=== PATIENT | female | born 1955 | race Caucasian/White ===

== ENCOUNTER → 2016-07-27 07:37 | Outpatient (CLI) | payer BC | END | disposition home or self-care (01) | LOC: D.CT 07:37 | DX: R93.8 Abnormal findings on diagnostic imaging of other specified body structures (principal) ==

== ENCOUNTER 2017-06-06 21:37 | Emergency (ER) | payer BC ==
[2017-06-06 22:35] LABS: BASOPHILS 0 % (0-2); EOSINOPHILS 1.2 % (0-7); HEMOGLOBIN 12.6 g/dL (12-16); IMMATURE GRANULOCYTES 0.2 % (0-5); LYMPHOCYTES 26.5 % (15-50); MCH 29.9 pg (26.0-34.0); MCHC 32.3 g/dL (31.0-37.0); MCV 92.4 fL (80.0-100.0); MEAN PLATELET VOLUME 9.5 fL (7.4-10.4); MONOCYTES 12.4 % (2-11); NEUTROPHILS 59.7 % (40-80); PLATELET COUNT 242 10x3/uL (130-400); RBC 4.22 10x6/uL (4.00-5.40); RDW 13.5 % (11.5-14.5); WBC 4.1 10x3/uL (4.8-10.8)
[2017-06-06 23:01] LABS: ALBUMIN 3.3 g/dL (3.4-5.0); ALKALINE PHOSPHATASE 43 U/L (46-116); ALT (SGPT) 32 U/L (10-68); CALC OSMOLALITY 277 mosm/kg (275-300); CALCIUM 8.5 mg/dL (8.5-10.1); CARBON DIOXIDE 32.7 mmol/L (21.0-32.0); CHLORIDE - SERUM 99 mmol/L (98-107); CREATININE - SERUM 0.8 mg/dL (0.6-1.3); GLUCOSE 150 mg/dL (74-106); POTASSIUM - SERUM 4.3 mmol/L (3.5-5.1); PROTEIN - SERUM 7.1 g/dL (6.4-8.2); SODIUM 137 mmol/L (136-145); UREA NITROGEN 14 mg/dL (7-18); eGFR NON AFRICAN AMERICAN 77 mL/min (90-120)
== END 2017-06-06 23:46 | disposition home or self-care (01) ==
LOC: D.ER 21:37
PROVIDERS: Family Medicine
DX: B34.9 Viral infection, unspecified (principal); I10 Essential (primary) hypertension

== ENCOUNTER → 2018-04-07 16:47 | Outpatient (CLI) | payer BC | END | disposition home or self-care (01) | LOC: D.MAMMO 03-24 16:00 | DX: Z12.31 Encounter for screening mammogram for malignant neoplasm of breast (principal) ==

== ENCOUNTER 2020-10-25 16:43 | Observation (INO) | payer BC ==
[~2020-10-25] VITALS: Ht 170.2 cm; Wt 104.5 kg
--- NOTE | ~2020-10-25 | EC ---
PATIENT:PATRICE HELLER DATE OF SERVICE: 10/25/20 SEX: F MEDICAL RECORD: [id number] DATE OF : [birth year] LOCATION:D.M2 D.213 AGE OF PATIENT: 65 ADMISSION DATE: 10/25/20 REFERRING PHYSICIAN: INTERPRETING PHYSICIAN: INDIO VANEGAS MD ECHOCARDIOGRAM REPORT ECHO CHARGES 4 ECHO COMPLETE Date: 10/27/20 CLINICAL DIAGNOSIS: CHF ECHOCARDIOGRAPHIC MEASUREMENTS (adult normal given) AC root (d.<3.7cm) 2.8 cm LV Septum d (<1.2 cm> 1.4 cm Valve Excursion 1.7 cm LV Septum (systole) 1.8 cm Left Atria (s.<4.0cm> 3.4 cm LVPW d(<1.2cm) 1.0 cm RV (d.<2.3cm) 2.7 cm LVPW (sytole) 1.5 cm LV diastole(<5.6CM) 5.5 cm MV E-F(>70mm/sec) cm LV systole 4.3 cm LVOT Diameter 1.7 cm MV exc.(>10mm) 1.0 cm Est.ejection fraction (50-75%) % DOPPLER: LVIT cm/sec A 95 cm/sec E 60 cm/sec LA cm/sec RVSP 26 mmHg LVOT 92 cm/sec AOP1/2T m/s Asc. Ao 134 cm/sec RVOT 63 cm/sec RA cm/sec PA 83 cm/sec AV Gradient Peak 7.1 mmHg AV Mean 4.4 mmHg AV Area 1.7 cm MV Gradient Peak 5.0 mmHg MV Mean 1.9 mmHg MV Area cm COMMENTS: Agricultural Extension Educator: [facility] Senior Marketing Associate: 3 Dr. Medina TAPE# Pericardial Effusion N DATE OF SERVICE: Adequate 2D, color flow imaging, spectral Doppler, and M-Mode. FINDINGS: No LVH. LV internal dimensions normal. Wall motion normal. EF is greater than or equal to 55%. Aortic valve is tricuspid. No evidence of stenosis by Doppler interrogation. Left atrium is normal at 3.4 cm. Mitral valve shows no prolapse. Trace MR. Right-sided chambers are grossly normal. Trace TR. ECHOCARDIOGRAM REPORT [id number] PATRICE HELLER TRANSINT:[id number] Voice Confirmation ID: [id number] DOCUMENT ID: [id number] INDIO VANEGAS MD CC: [id number] DICTATION DATE: 10/28/20 1549 DOUBLE END TENONER OPERATOR: 10/28/202036 DIS IN 10/27/20 [facility] [address] [id number]
--- NOTE | ~2020-10-25 | CN ---
PATIENT NAME:PATRICE HELLER MEDICAL RECORD: [id number] : 57 LOCATION:D. D.2132 ADMIT DATE: 10/25/20 ACCOUNT: [id number] CONSULTING PHYSICIAN: LUCY RAJAN MD REFERRING PHYSICIAN: ARAVIND PARSONS MD DATE OF CONSULTATION: 10/26/2020 HISTORY OF PRESENT ILLNESS: The patient is a 65-year-old female with history of hypertension, hyperlipidemia, anxiety, who presented with complaints of nausea and vomiting symptoms. The patient was noted to have abnormal troponin. Asked to evaluate from a cardiovascular standpoint. PAST MEDICAL HISTORY: Significant for; 1. Abnormal troponin. 2. Hypertension. 3. Hyperlipidemia. 4. Shortness of breath. 5. Nausea and vomiting symptomatology. PHYSICAL EXAMINATION: GENERAL: Pleasant, mildly obese, middle-aged white female, in no apparent distress. VITAL SIGNS: Blood pressure 108/60, pulse 60s (regular). HEENT: Sclerae are clear; conjunctivae pink. NECK: Supple; no appreciated JVD. HEART: She has got a regular rhythm and rate without appreciated murmurs, gallops, or rubs. LUNGS: Clear bilaterally. ABDOMEN: Obese. Bowel sounds positive. EXTREMITIES: Negative for edema. NEUROLOGIC: Nonfocal. DIAGNOSTIC DATA: EKG, normal sinus rhythm at 74 beats per minute, no acute ST-T wave changes. LABORATORY DATA: Hemoglobin and hematocrit 12.8 and 39.8, platelet count is 258. Sodium 141, potassium 4.1, BUN 10, creatinine 0.7, troponin 0.26. BNP is 3485 (elevated), LDL is 54, HDL is 62. Troponin 0.55 (elevated). MEDICATIONS: 1. Trazodone 200 mg daily. 2. Requip 1 mg daily. 3. Protonix 40 mg daily. 4. Outpatient amlodipine daily. 5. Gemfibrozil daily. 6. Hydrochlorothiazide daily. 7. Rosuvastatin daily (unclear doses). ASSESSMENT: 1. Congestive heart failure -- decompensated. 2. Abnormal troponin secondary to congestive heart failure. 3. Hypertension. 4. Shortness of breath. 5. Nausea and vomiting, has gastrointestinal symptomatology. 6. Hyperlipidemia. CONSULT REPORT [id number] PATRICE HELLER 7. Mild obesity. PLAN: Continue current medical management at this time. I recommend decreasing IV fluid to 50 cc an hour. I will also schedule the patient's echocardiogram to assess LV function and valvular status. Further recommendation as clinically indicated. Thank you for allowing me to participate in the care of this patient. TRANSINT:[id number] Voice Confirmation ID: [id number] DOCUMENT ID: [id number] LUCY RAJAN MD CC: [id number] DICTATION DATE: 10/26/201103 ASSISTANT PRESS OPERATOR: 10/26/20 1649 ADM IN [facility] [address] [place] [address]
[2020-10-25 17:16] LABS: BASOPHILS 0.4 % (0-2); EOSINOPHILS 0.3 % (0-7); HEMATOCRIT 41.9 % (36.0-48.0); HEMOGLOBIN 13.8 g/dL (12-16); IMMATURE GRANULOCYTES 0.1 % (0-5); LYMPHOCYTE ABS# 1.81 10x3/uL (1.18-3.74); MCH 29.5 pg (26.0-34.0); MCHC 32.9 g/dL (31.0-37.0); MCV 89.5 fL (80.0-100.0); MEAN PLATELET VOLUME 9.8 fL (7.4-10.4); MONOCYTES 6.4 % (2-11); NEUTROPHILS 74.8 % (40-80); PLATELET COUNT 289 10x3/uL (130-400); RBC 4.68 10x6/uL (4.00-5.40); RDW 13.8 % (11.5-14.5)
[2020-10-25 17:33] LABS: CALC OSMOLALITY 276 mosm/kg (275-300); CALCIUM 9.2 mg/dL (8.5-10.1); CHLORIDE - SERUM 100 mmol/L (98-107); CREATININE - SERUM 0.7 mg/dL (0.6-1.3); GLUCOSE 136 mg/dL (74-106); POTASSIUM - SERUM 3.6 mmol/L (3.5-5.1); SODIUM 138 mmol/L (136-145); UREA NITROGEN 11 mg/dL (7-18); eGFR NON AFRICAN AMERICAN 89 mL/min (90-120)
[2020-10-25 17:54] LABS: ALBUMIN 4.2 g/dL (3.4-5.0); ALKALINE PHOSPHATASE 59 U/L (30-120); ALT (SGPT) 37 U/L (10-68); AMYLASE - SERUM 28 U/L (25-115); BILIRUBIN - TOTAL 1.83 mg/dL (0.2-1.3); LIPASE 52 U/L (73-393); PROTEIN - SERUM 7.5 g/dL (6.4-8.2)
[2020-10-25 17:59] LABS: TROPONIN-I 0.613 ng/mL (0.000-0.060)
[2020-10-25 18:19] LABS: BILIRUBIN NEGATIVE (NEGATIVE); KETONE SMALL mg/dL (NEGATIVE); NITRITE NEGATIVE (NEGATIVE); UROBILINOGEN NORMAL mg/dL (< 2)
[2020-10-25 18:24] LABS: BACTERIA FEW HPF (NONE SEEN); SQUAMOUS EPITHELIAL 0-5 HPF (0-4); WHITE CELLS - URINE NONE SEEN HPF (0-4)
[2020-10-25 19:25] VITALS: BP 142/92
[2020-10-25 20:25] VITALS: BP 118/80
[2020-10-25 21:48] VITALS: Ht 170.2 cm; Wt 104.5 kg
[2020-10-25] MEDS ORDERED: TRAZODONE HCL100 MG PO (22:27)
[2020-10-25] MEDS ORDERED: CRESTOR5 MG PO (22:33)
[2020-10-25] MEDS ORDERED: ROPINIROLE HCL1 MG PO (22:33)
[2020-10-25] MEDS ORDERED: XANAX0.5 MG PO (22:34)
[2020-10-26 05:04] VITALS: BP 136/77
[2020-10-26 08:27] VITALS: BP 108/63
[2020-10-26 08:27] LABS: BASOPHILS 0.8 % (0-2); HEMATOCRIT 39.8 % (36.0-48.0); HEMOGLOBIN 12.8 g/dL (12-16); LYMPHOCYTE ABS# 1.27 10x3/uL (1.18-3.74); LYMPHOCYTES 20.4 % (15-50); MCH 29.4 pg (26.0-34.0); MCHC 32.2 g/dL (31.0-37.0); MCV 91.3 fL (80.0-100.0); MEAN PLATELET VOLUME 9.9 fL (7.4-10.4); MONOCYTES 8.8 % (2-11); NEUTROPHIL ABS# 4.31 10x3/uL (1.56-6.13); PLATELET COUNT 258 10x3/uL (130-400); RBC 4.36 10x6/uL (4.00-5.40); RDW 13.8 % (11.5-14.5)
[2020-10-26 08:28] LABS: WBC 6.2 10x3/uL (4.8-10.8)
[2020-10-26 08:42] LABS: APTT 28.4 SECONDS (22.8-39.4); INR 1.14 (0.85-1.17); PROTIME 13.5 SECONDS (11.6-15.0)
[2020-10-26 08:59] LABS: ALBUMIN 3.7 g/dL (3.4-5.0); ALKALINE PHOSPHATASE 56 U/L (30-120); ALT (SGPT) 35 U/L (10-68); BILIRUBIN - TOTAL 1.62 mg/dL (0.2-1.3); CALC OSMOLALITY 280 mosm/kg (275-300); CALCIUM 8.5 mg/dL (8.5-10.1); CARBON DIOXIDE 28.6 mmol/L (21.0-32.0); CHLORIDE - SERUM 105 mmol/L (98-107); CHOL - HDL RATIO 2.4 ratio (2.3-4.1); CHOLESTEROL, TOTAL 147 mg/dL (0-200); CREATININE - SERUM 0.7 mg/dL (0.6-1.3); GLUCOSE 124 mg/dL (74-106); HDL CHOLESTEROL 62 mg/dL (32-96); LDL CHOLESTEROL 54 mg/dL (0-100); LDL-HDL RATIO 0.9 ratio (1.5-3.5); MAGNESIUM - SERUM 2.5 mg/dL (1.8-2.4); PHOSPHOROUS 4.4 mg/dL (2.5-4.9); POTASSIUM - SERUM 4.1 mmol/L (3.5-5.1); PRO BNP 3485 pg/mL (0-125); PROTEIN - SERUM 6.4 g/dL (6.4-8.2); SODIUM 141 mmol/L (136-145); TRIGLYCERIDE 157 mg/dL (30-200); UREA NITROGEN 10 mg/dL (7-18); eGFR NON AFRICAN AMERICAN 89 mL/min (90-120)
[2020-10-26 09:02] LABS: CKMB 3.9 U/L (0.0-3.6); CREATINE KINASE 142 UL (21-215)
[2020-10-26 09:22] LABS: TROPONIN-I 0.262 ng/mL (0.000-0.060)
[2020-10-26 11:38] LABS: CKMB 3.7 U/L (0.0-3.6); CREATINE KINASE 140 UL (21-215)
[2020-10-26 11:40] LABS: TROPONIN-I 0.242 ng/mL (0.000-0.060)
[2020-10-26] MEDS ORDERED: ULTRAM50 MG PO (11:47)
[2020-10-26] MEDS ORDERED: VOLTAREN75 MG PO (11:49)
[2020-10-26 12:10] VITALS: BP 132/82
[2020-10-26] MEDS ORDERED: CELEBREX200 MG PO (12:35)
[2020-10-26] MEDS ORDERED: CELEXA40 MG PO (12:36)
[2020-10-26] MEDS ORDERED: NORVASC5 MG PO (12:37)
[2020-10-26] MEDS ORDERED: HYDROCHLOROTHIA25 MG PO (12:39)
[2020-10-26] MEDS ORDERED: METOPROLOL TART25 MG PO (12:39)
--- NOTE | 2020-10-26 12:43 | NUR ---
DAUGHTER BROUGHT MEDICATIONS AND MEDICATION RECONCILIATION WAS COMPLETED.
[2020-10-26 20:00] VITALS: BP 102/75
--- NOTE | 2020-10-26 20:00 | NUR ---
INITIAL ROUNDS AND ASSESSMENT COMPLETED. PT RESTING IN BED. CALL LIGHT IN REACH. SEE ASSESSMENT.
[2020-10-27 05:58] VITALS: BP 122/75
[2020-10-27 08:12] LABS: BASOPHILS 0.6 % (0-2); EOSINOPHILS 1.7 % (0-7); HEMATOCRIT 41.2 % (36.0-48.0); HEMOGLOBIN 13.2 g/dL (12-16); IMMATURE GRANULOCYTES 0.2 % (0-5); LYMPHOCYTE ABS# 1.43 10x3/uL (1.18-3.74); LYMPHOCYTES 27.3 % (15-50); MCH 29.4 pg (26.0-34.0); MCV 91.8 fL (80.0-100.0); MEAN PLATELET VOLUME 10.1 fL (7.4-10.4); MONOCYTES 6.5 % (2-11); NEUTROPHIL ABS# 3.34 10x3/uL (1.56-6.13); NEUTROPHILS 63.7 % (40-80); PLATELET COUNT 270 10x3/uL (130-400); RBC 4.49 10x6/uL (4.00-5.40); RDW 13.7 % (11.5-14.5); WBC 5.2 10x3/uL (4.8-10.8)
[2020-10-27 08:41] LABS: CALC OSMOLALITY 281 mosm/kg (275-300); CALCIUM 9.1 mg/dL (8.5-10.1); CARBON DIOXIDE 31.5 mmol/L (21.0-32.0); CHLORIDE - SERUM 103 mmol/L (98-107); CREATININE - SERUM 0.8 mg/dL (0.6-1.3); GLUCOSE 119 mg/dL (74-106); MAGNESIUM - SERUM 2.7 mg/dL (1.8-2.4); PHOSPHOROUS 4.1 mg/dL (2.5-4.9); POTASSIUM - SERUM 4.2 mmol/L (3.5-5.1); SODIUM 142 mmol/L (136-145); UREA NITROGEN 8 mg/dL (7-18); eGFR NON AFRICAN AMERICAN 76 mL/min (90-120)
--- NOTE | 2020-10-27 09:34 | NUR ---
AM MEDS GIVEN AT THIS TIME. PT SITTING UP IN BED WATCHING TV, RR EVEN NON LABORED ON ROOM AIR. PT DENIES ANY PAIN OR NEEDS AT THIS TIME. CLWR.
--- NOTE | 2020-10-27 14:41 | NUR ---
D/C INSTRUCTIONS GIVEN TO PT AT THIS TIME. PT STATES UNDERSTANDING AND DENIES ANY QUESTIONS. IV REMOVED , CATHETER INTACT, DRESSING APPLIED. NO FURTHER NEEDS VOICED, PT SON IN ROUTE TO PICK PT UP. CLWR.
--- NOTE | 2020-10-27 15:15 | NUR ---
PT WHEELED TO PRIVATE VEHICLE WITH ALL BELONGINGS AT THIS TIME. NO DISTRESS NOTED ON DEPARTURE.
== END 2020-10-27 15:15 | disposition home or self-care (01) ==
LOC: D.ER 16:43 → D.M2 19:45 → OBSVTIME 19:45 → D.M2 19:45
PROVIDERS: Family Medicine; ADMIT Family Medicine; ATTEND Family Medicine
DX: R11.2 Nausea with vomiting, unspecified (principal); R10.9 Unspecified abdominal pain; R77.8 Other specified abnormalities of plasma proteins; E78.5 Hyperlipidemia, unspecified; R06.02 Shortness of breath; I50.9 Heart failure, unspecified; E66.9 Obesity, unspecified; J44.9 Chronic obstructive pulmonary disease, unspecified; G47.33 Obstructive sleep apnea (adult) (pediatric); M19.90 Unspecified osteoarthritis, unspecified site; F41.8 Other specified anxiety disorders; Z68.36 Body mass index [BMI] 36.0-36.9, adult; M25.562 Pain in left knee; M25.561 Pain in right knee; I11.0 Hypertensive heart disease with heart failure